=== PATIENT | male | born 1980 | race Two or more races ===

== ENCOUNTER → 2024-05-29 | Outpatient (CLI) | payer MEDICAID, SELFPAY ==
--- NOTE | 2024-05-29 08:49 | XR_ITS ---
Examination: Wrist, right 3 views Technique: Wrist AP, oblique, lateral 3 views Date and time of exam: May 29, 2024 0851 hours INDICATIONS: Cystic change in the wrist diagnosis 2 weeks ago FINDINGS: 4 mm cyst in the lunate Mild osteoarthritis radiocarpal navicular trapezium first carpometacarpal joints No fracture IMPRESSION: Minor cystic change in the lunate
--- NOTE | 2024-05-29 08:49 | XR_ITS ---
Examination: Hand, right 3 views Technique: Hand AP, oblique, lateral 3 views Date and time of exam: May 29, 2024 0851 hours INDICATIONS: Wrist cystic disease diagnosis FINDINGS: Mild juxta-articular bone demineralization Mild osteoarthritis fifth metacarpal phalangeal joint Mild osteoarthritis first carpometacarpal joint and radiocarpal joint and distal interphalangeal joints second through fifth digits No erosive arthritis IMPRESSION: Osteoarthritis as above
== END | disposition home or self-care (01) ==
LOC: CDIM 08:24
DX: M19.041 Primary osteoarthritis, right hand (principal); M25.831 Other specified joint disorders, right wrist
CPT/HCPCS: 73110; 73130

== ENCOUNTER → 2024-06-21 | Outpatient (CLI) | payer MEDICAID, SELFPAY ==
--- NOTE | 2024-06-21 13:45 | XR_ITS ---
Examination: MRI right wrist, without contrast Date and time of exam: June 21, 2024 1411 hours INDICATIONS: Palpable mass in the wrist at the level of the radial styloid noticed beginning 6 months ago, post surgically to remove the mass Technique: Multiple axial sagittal and coronal images of the right wrist have been obtained with the Siemens high-resolution 1.5 [employer] MRI scanner. Images obtained include T2-weighted fat-suppressed sagittal sections, TR 3500, TE 46, T2 weighted coronal fat suppressed images, TR 3050, TE 84, T2-weighted transverse fat suppressed images, TR 3260, TE 63, proton density transverse images, TR 4720 TE 46, and T1 weighted coronal images, TR 560, TE 13. Findings: 14 x 16 x 8 mm ganglion cyst which projects palmar to the distal radius and adjacent to the radial styloid Triangular fibrocartilage intact No occult fracture No avascular necrosis Flexor tendons intact with normal-appearing median nerve Extensor tendons intact with mild tendinitis extensor carpi radialis longus IMPRESSION: 14 x 16 x 8 mm ganglion cyst projecting palmar to the distal radius, adjacent to the radial styloid
== END | disposition home or self-care (01) ==
PROVIDERS: PCP Internal Medicine; Referring Provider Internal Medicine; Visit Provider Internal Medicine
DX: M67.431 Ganglion, right wrist (principal)
CPT/HCPCS: 73221

== ENCOUNTER → 2024-12-26 | Outpatient (CLI) | payer MEDICAID, SELFPAY ==
--- NOTE | 2024-12-26 10:22 | XR_ITS ---
Examination: Wrist, right 3 views Technique: Wrist AP, oblique, lateral 3 views Date and time of exam: December 26, 2024 10:57 AM INDICATIONS: Right wrist pain one month. FINDINGS: Mild osteoarthritis radiocarpal first carpometacarpal joints No fracture No erosive arthritis IMPRESSION: Mild osteoarthritis
--- NOTE | 2024-12-26 10:22 | XR_ITS ---
Examination: Hand, right 3 views Technique: Hand AP, oblique, lateral 3 views Date and time of exam: December 26, 2024 1057 hours INDICATIONS: Right hand pain one month. FINDINGS: Mild juxta-articular bone demineralization. No fracture. No erosive arthritis. Minimal osteoarthritis distal interphalangeal joints IMPRESSION: Minimal osteoarthritis
== END | disposition home or self-care (01) ==
PROVIDERS: PCP Internal Medicine; Referring Provider Nurse Practitioner Gerontology; Visit Provider Nurse Practitioner Gerontology
DX: M19.041 Primary osteoarthritis, right hand (principal); M19.031 Primary osteoarthritis, right wrist
CPT/HCPCS: 73110; 73130

== ENCOUNTER → 2025-06-03 | Outpatient (CLI) | payer MEDICAID, SELFPAY ==
--- NOTE | 2025-06-03 09:15 | XR_ITS ---
Examination: MRI right hand without contrast Date and time of exam: June 03, 2025, 0927 hours, comparison MRI right wrist June 21, 2024 INDICATIONS: Right hand pain post injury 2 years ago swelling involving the fourth digit Technique: Multiple MRI axial and sagittal sections lumbar spine. Sagittal T2-weighted images, TR 3500, TE 118 T1 weighted transverse sections, TR 688 T8.5, T2-weighted sagittal sections T1 weighted sagittal sections TR 621, TE 30 T2 axial sections, TR 4, 190, TE 84. Findings: No occult fracture or bone contusion or marrow edema or avascular necrosis Flexor and extensor tendons fourth digit intact No asymmetric interphalangeal joint effusions No annular lynsey tear No cortical bone destruction No soft tissue tumor mass or abscess IMPRESSION: No occult fracture or bone contusion or marrow edema or avascular necrosis Flexor and extensor tendons appear intact No annular lynsey tears
== END | disposition home or self-care (01) ==
PROVIDERS: PCP Internal Medicine; Referring Provider Nurse Practitioner Gerontology; Visit Provider Nurse Practitioner Gerontology
DX: M79.641 Pain in right hand (principal)
CPT/HCPCS: 73218